=== PATIENT | male | born 2000 | race Caucasian/White ===

== ENCOUNTER 2021-05-24 23:33 | Day surgery (SDC) | payer OTHER ==
[~2021-05-24] VITALS: Ht 170.2 cm; Wt 76.6 kg
[2021-05-25] MEDS ORDERED: ACETAMINOPHEN 325 MG TAB PO ONE (01:05)
[2021-05-25] MEDS ORDERED: NS 1,000 ML IV ONE (01:05)
[2021-05-25 02:30] LABS: BASO % 0.3 % (0.0-1.0); EOS # 0.1 10^3/uL (0.0-0.5); EOS % 0.8 % (0.0-3.0); HEMATOCRIT 42.1 % (42.0-52.0); HEMOGLOBIN 14.1 g/dl (13.5-17.5); LYMPH # 2.4 10^3/uL (1.5-5.0); LYMPH % 15.3 % (24.0-44.0); MEAN CORPUSCULAR HEMOGLOBIN 28.1 pg (27.0-33.0); MEAN CORPUSCULAR HGB CONC 33.5 g/dl (32.0-36.5); MONO # 1.6 10^3/uL (0.0-0.8); MONO % 10.3 % (2.0-8.0); NEUTROPHILS # 11.6 10^3/uL (1.5-8.5); NEUTROPHILS % 72.9 % (36.0-66.0); PLATELET COUNT, AUTOMATED 198 10^3/uL (150-450); RED BLOOD COUNT 5.01 10^6/uL (4.30-6.10); WHITE BLOOD COUNT 15.9 10^3/uL (4.0-10.0)
[2021-05-25 02:59] LABS: ALBUMIN 4.1 GM/DL (3.2-5.2); ALT/SGPT 56 U/L (12-78); BILIRUBIN,DIRECT 0.1 MG/DL (0.0-0.2); BILIRUBIN,TOTAL 0.3 MG/DL (0.2-1.0); BLOOD UREA NITROGEN 17 MG/DL (7-18); CALCIUM LEVEL 9.4 MG/DL (8.5-10.1); CARBON DIOXIDE LEVEL 26 MEQ/L (21-32); CHLORIDE LEVEL 107 MEQ/L (98-107); CREATININE FOR GFR 1.02 MG/DL (0.70-1.30); GLUCOSE, FASTING 95 MG/DL (70-100); LIPASE 61 U/L (73-393); SODIUM LEVEL 141 MEQ/L (136-145)
[2021-05-25] MEDS ORDERED: ISOVUE-370 76% 100ML VIAL As Ordered ONE (03:14)
[2021-05-25 05:11] LABS: RSV AMPLIFICATION NEGATIVE (NEGATIVE)
[2021-05-25] MEDS ORDERED: PIPERACILLIN/TAZOBACTAM SOD 3.375 GM in D5W MINI-BAG PLUS 50 ML IV ONE (05:35)
--- NOTE | 2021-05-25 05:47 | REPVR ---
PROCEDURE INFORMATION: Exam: CT Abdomen And Pelvis With Contrast Exam date and time: 05/25/2021 3:25 AM Age: 20 years old Clinical indication: Other: Rlq pain TECHNIQUE: Imaging protocol: Computed tomography of the abdomen and pelvis with contrast. Radiation optimization: All CT scans at this facility use at least one of these dose optimization techniques: automated exposure control; mA and/or kV adjustment per patient size (includes targeted exams where dose is matched to clinical indication); or iterative reconstruction. Contrast material: ISOVUE 370; Contrast volume: 100 ml; Contrast route: INTRAVENOUS (IV); COMPARISON: No relevant prior studies available. FINDINGS: Lungs: The visualized portions of the lung bases are normal. Liver: The liver appears normal. Gallbladder and bile ducts: The gallbladder is normal with no stones or biliary ductal dilation. Pancreas: The pancreas is normal with no ductal dilation. Spleen: The spleen is normal. Adrenal glands: The adrenal glands are normal. Kidneys and ureters: The nephrograms appear symmetric. There is a punctate nonobstructing stone in the right kidney upper pole. There is no hydronephrosis. The nondilated distal ureters are difficult to trace, but no stones are seen along their expected course. Stomach and bowel: There is mild thickening of the terminal ileum. There is no dilation of the small bowel. There is amorphous soft tissue in the region of the cecal tip, which probably represents thickening of the wall of the cecum itself but a phlegmonous extraluminal collection is possible. No dilation or thickening of the colon are seen elsewhere. Appendix: The appendix is enlarged diffusely measuring 10 mm in diameter toward its tip. The wall of the appendix is diffusely thickened and mildly hyperenhancing.The base of the appendix is within the amorphous tissue at the cecal tip. There is prominent periappendiceal stranding. Intraperitoneal space: There is a small amount of free fluid in the right lower quadrant and in the midline of the pelvis. There is no free intraperitoneal air. Vasculature: No aortic aneurysm. Lymph nodes: There are enlarged mesenteric lymph nodes in the right lower quadrant. Urinary bladder: The bladder is mostly collapsed. No bladder stones are identified. Reproductive: The prostate gland appears normal. Bones/joints: No suspicious osseous lesions. No acute fractures. Soft tissues: The soft tissues appear unremarkable. IMPRESSION: Acute appendicitis with an enlarged, thickened, hyperenhancing appendix. Amorphous soft tissue at the base of the appendix and cecal tip probably represents thickening of the wall of the cecum, but a phlegmonous collection is difficult to exclude. Associated mild thickening of the adjacent terminal ileum, stranding in the right lower quadrant, a small amount of free fluid in the right lower quadrant and the pelvis, and enlarged mesenteric lymph nodes in the right lower quadrant. COMMENTS: THIS REPORT CONTAINS FINDINGS THAT MAY BE CRITICAL TO PATIENT CARE. The findings were verbally communicated via telephone conference with Dr. Reddy at 5:45 AM EST on 05/25/2021. The findings were acknowledged and understood. Electronically signed by: Chanda Georges On 05/25/2021 05:46:52 AM
[2021-05-25] MEDS ORDERED: ONDANSETRON 4MG/2ML VIAL As Ordered ONE ×2 (05:58→15:30)
[2021-05-25] MEDS ORDERED: NS 1,000 ML IV SCH (06:00)
[2021-05-25] MEDS ORDERED: ONDANSETRON 4MG/2ML VIAL IV ONE (06:00)
[2021-05-25] MEDS ORDERED: MORPHINE 2 MG/ML 1ML VIAL (J2270) IV ONE (06:05)
[2021-05-25] MEDS ORDERED: D31000TA2 PO (06:33)
[2021-05-25] MEDS ORDERED: MIRA1POW3 PO (06:33)
--- OUTSIDE RECORDS SUMMARY | 2021-05-25 07:52 | CCD ---
Author Author [facility] Address Unknown Phone Unavailable Support Name Relationship Address Phone [facility] Next Of Kin [address] [place] [address] Unavailable VALENCIA WANG Next Of Kin [address] [phone] Re-disclosure Warning The records that you are about to access may contain information from federally-assisted alcohol or drug abuse programs. If such information is present, then the following federally mandated warning applies: This information has been disclosed to you from records protected by federal confidentiality rules (42 CFR part 2). The federal rules prohibit you from making any further disclosure of this information unless further disclosure is expressly permitted by the written consent of the person to whom it pertains or as otherwise permitted by 42 CFR part 2. A general authorization for the release of medical or other information is NOT sufficient for this purpose. The Federal rules restrict any use of the information to criminally investigate or prosecute any alcohol or drug abuse patient.The records that you are about to access may contain highly sensitive health information, the redisclosure of which is protected by Article 27-F of the [facility] Public Health law. If you continue you may have access to information: Regarding HIV / AIDS; Provided by facilities licensed or operated by the [facility] Office of Mental Health; or Provided by the [facility] Office for People With Developmental Disabilities. If such information is present, then the following [facility] mandated warning applies: This information has been disclosed to you from confidential records which are protected by state law. State law prohibits you from making any further disclosure of this information without the specific written consent of the person to whom it pertains, or as otherwise permitted by law. Any unauthorized further disclosure in violation of state law may result in a fine or retirement sentence or both. A general authorization for the release of medical or other information is NOT sufficient authorization for further disc losure. Immunizations Vaccine Date Status Description Data Source(s) COVID-19 VACCINE Moderna 11/10/2020 12:00:00 AM EDT completed [facility] Vaccine Series Complete: YESThis Data wa s Submitted to [facility] Via [employer]. COVID-19 VACCINE Moderna 10/12/2020 12:00:00 AM EDT completed [facility] Vaccine Series Complete: NOThis Data was Submitted to [facility] [employer] [facility]. Medications No Information Insurance Providers Payer name Policy type / Coverage type Policy ID Covered democrat ID Covered democrat's relationship to khan Policy Khan Plan Information [facility] [employer] [id number] Problems, Conditions, and Diagnoses No Information Surgeries/Procedures No Information Results ID Date Data Source [id number] 02/02/2021 09:28:00 AM EDT [facility] Name Value Range Interpretation Code Description Data Raquel rce(s) Supporting Document(s) SARS coronavirus 2 RNA Not Detected [facility] [place] This lab was ordered by [facility] and reported by [facility]. Procedure Social History No Information
[2021-05-25] MEDS ORDERED: DICY20TA11 PO (08:00)
[2021-05-25] MEDS ORDERED: HOME MED LIST COMPLETE! XX SCH (08:00)
[2021-05-25] MEDS ORDERED: MORPHINE 2 MG/ML 1ML VIAL (J2270) IV PRN ×3 (13:05→18:00)
[2021-05-25] MEDS ORDERED: LIDOCAINE 2% 100MG/5ML SDV (FOR ANES.) As Ordered ONE (15:29)
[2021-05-25] MEDS ORDERED: MIDAZOLAM INJ 2MG/2ML VIAL (J2250 PER 1MG) As Ordered ONE (15:29)
[2021-05-25] MEDS ORDERED: fentaNYL 100 MCG/2 ML INJECTION (J3010) As Ordered ONE ×2 (15:29→17:10)
[2021-05-25] MEDS ORDERED: propofoL 200 MG/20 ML VIAL As Ordered ONE (15:30)
[2021-05-25] MEDS ORDERED: ROCURONIUM BROMIDE 50 MG/5 ML VIAL As Ordered ONE (15:30)
[2021-05-25] MEDS ORDERED: dexameTHASONE 4 MG/ML 1ML VIAL (J1100 PER 1MG) As Ordered ONE (15:30)
[2021-05-25] MEDS ORDERED: BUPIVACAINE/EPIN 0.25% 30 ML VIAL As Ordered ONE (16:37)
[2021-05-25] MEDS ORDERED: ZOSYN 3.375GM VIAL (J2543) As Ordered ONE (16:53)
[2021-05-25] MEDS ORDERED: ACETAMINOPHEN 1000MG 100ML IV BTL (OFIRMEV) (J0131 PER 10MG) As Ordered ONE (17:00)
[2021-05-25] MEDS ORDERED: SUGAMMADEX SODIUM 500 MG/5 ML VIAL (BRIDION) As Ordered ONE (17:10)
[2021-05-25] MEDS ORDERED: KETOROLAC 60MG 2ML VIAL As Ordered ONE (17:10)
[2021-05-25] MEDS ORDERED: NORCO, ANEXSIA 5/325MG TABLET (HYDROcodone/ACETAMINOPHEN) PO PRN (18:00)
[2021-05-25] MEDS ORDERED: LR 1,000 ML IV SCH ×2 (18:00→18:30)
[2021-05-25] MEDS ORDERED: ONDANSETRON 4MG/2ML VIAL IV PRN (18:30)
[2021-05-25] MEDS ORDERED: fentaNYL 100 MCG/2 ML INJECTION (J3010) IV PRN (18:30)
[2021-05-25] MEDS ORDERED: oxyCODONE 5MG TAB PO PRN (18:30)
[2021-05-25 19:00] VITALS: BP 112/59
[2021-05-25 19:30] VITALS: BP 121/57
[2021-05-25] MEDS: PIPERACILLIN/TAZOBACTAM SOD 3.375 GM in D5W MINI-BAG PLUS 50 ML IV SCH (19:43)
[2021-05-25 20:00] VITALS: BP 115/61
[2021-05-25] MEDS: NORCO, ANEXSIA 5/325MG TABLET (HYDROcodone/ACETAMINOPHEN) PO PRN (20:34)
[2021-05-25 21:00] VITALS: BP 121/66
[2021-05-25 22:00] VITALS: BP 121/63
[2021-05-25 23:00] VITALS: BP 124/64
[2021-05-26] MEDS: KETOROLAC 30 MG/ML 1ML VIAL IV SCH ×4 (00:41→18:55)
[2021-05-26] MEDS: PIPERACILLIN/TAZOBACTAM SOD 3.375 GM in D5W MINI-BAG PLUS 50 ML IV SCH ×4 (00:42→18:55)
[2021-05-26 02:00] VITALS: BP 123/70
[2021-05-26] MEDS: NORCO, ANEXSIA 5/325MG TABLET (HYDROcodone/ACETAMINOPHEN) PO PRN ×2 (05:14→21:20)
[2021-05-26 06:00] VITALS: BP 122/69
[2021-05-26] MEDS: PANTOPRAZOLE 40MG VIAL (C9113 PER 1) IV SCH (08:30)
--- NOTE | 2021-05-26 09:47 | IPNPDOC ---
Text Note Date of Service The patient was seen on 05/26/21. NOTE SUBJECTIVE: Patient is a 20-year-old male presenting with appendicitis status post laparoscopic appendectomy day 1. Patient was seen at bedside in no acute distress. States that he "feels like crap" but the abdominal pain is improved from yesterday. REVIEW OF SYSTEMS: CONSTITUTIONAL: denies fever, chills HEENT: denies headaches RESPIRATORY: denies cough, wheezing, shortness of breath CARDIOVASCULAR: denies chest pain, palpations GASTROINTESTINAL: has some abdominal pain GENITOURINARY: dysuria (better than yesterday) OBJECTIVE PHYSICAL EXAMINATION: VITAL SIGNS: Please see below. GENERAL: in no acute distress, HEENT: PERRLA, EOMI, mucous membranes moist CARDIOVASCULAR: regular rate and rhythm; S1 S2; no murmur, rubs or gallops noted RESPIRATORY: clear to auscultation bilaterally, no wheezes, rhonchi, rales noted ABDOMINAL: normal active bowel sounds; soft, nondistended; mild tenderness to palpation; incision site dressings intact and in place EXTREMITIES: no pitting edema bilaterally LABORATORY DATA, IMAGING STUDIES, MICROBIOLOGY: Please see below. ASSESSMENT AND PLAN: This is a 20-year-old male presenting with appendicitis status post laparoscopic appendectomy day 1. - continue abx - continue pain control as needed - advance diet as tolerated - may consider discharge to home tomorrow GME ATTESTATION My faculty preceptor for this patient encounter was physically present during the encounter and was fully available. All aspects of the patient interview, examination, medical decision making process, and medical care plan development were reviewed and approved by the faculty preceptor. The faculty preceptor is aware and concurs with the plan as stated in the body of this note and will attest to such by his/her cosignature. VS,Fishbone, I+O VS, Fishbone, I+O Vital Signs Date Time Temp Pulse Resp B/P (MAP) Pulse Ox O2 Delivery O2 Flow Rate FiO2 05/26/21 06:00 98.7 77 18 122/69 (86) 95 Room Air 05/26/21 05:44 1.0 l I&O- Last 24 Hours up to 6 AM 05/26/21 06:00 Intake Total 3135 ml Output Total 2250 ml Balance 885 ml Megan Velázquez DO May 26, 2021 09:47
[2021-05-26 10:00] VITALS: BP 129/63
[2021-05-26] MEDS ORDERED: NORCO, ANEXSIA 5/325MG TABLET (HYDROcodone/ACETAMINOPHEN) PO PRN (11:50)
--- NOTE | 2021-05-26 12:43 | RO ---
OPERATIVE NOTE DATE OF OPERATION: 05/25/2021 PREOPERATIVE DIAGNOSIS: Acute appendicitis. POSTOPERATIVE DIAGNOSIS: Acute appendicitis. PROCEDURE: Laparoscopic appendectomy. SURGEON: Yusuf Bryant Jr., MD DIRECTOR OF CARDIOPULMONARY SERVICES: ANESTHESIA: General endotracheal anesthesia ESTIMATED BLOOD LOSS: Minimal. FLUIDS: Crystalloid. BRIEF PROCEDURE SUMMARY: The patient was brought to the operating room and was given general anesthesia. After adequate anesthesia and preoperative antibiotics were given, the patient was prepped and draped in the usual sterile fashion. Next, a supraumbilical incision was made with a skin knife. Blunt dissection was carried down to fascia. The fascia was entered with Veress needle and insufflated to 15 mm of pressure and a dilating 12 mm trocar was placed. Next, a suprapubic and left lower quadrant 5 mm trocars were placed and the patient was placed in the Trendelenburg, left side down position. The tip of the appendix was well visualized and was edematous and inflamed but more importantly, it was the base of the appendix that was quite thickened and a palpable mass/stool ball was appreciated at the appendiceal orifice and there was some necrosis near the base of the appendix, however without perforation. This was able to be visualized after I used the harmonic scalpel to mobilize the terminal ileum and the cecum on this side as well as transect the mesoappendix with the harmonic scalpel all the way down to the cecal wall. However, this area was quite inflamed after having a prolonged inflammatory process present (almost 36 to 48 hours). In any case, I was able to use an atraumatic grasper and place it across this hard stool and was able to crush this out of the way but in doing so, there was still very thickened colon wall in this area and I felt that the base of the appendix was quite attenuated and thus I transected the tip of the cecum with an [place] 60 stapler and was able to get across the majority of the cecal tip. There was a little left over that a 45 stapler was used to remove. This was placed in an EndoCatch bag and brought out through the umbilicus. The right lower quadrant was copiously irrigated through until clear and all trocars removed under direct visualization. The fascia was closed with 0 Vicryl in the fascial layer and all incisions were closed with 4-0 Vicryl. Steri-Strips and a dry sterile dressing was applied. The patient was awakened, extubated, brought to the recovery room awake, alert, hemodynamically stable. Sponge and needle counts were correct x2.
[2021-05-26 14:00] VITALS: BP 120/67
[2021-05-26 20:02] VITALS: BP 118/62
[2021-05-27] MEDS: KETOROLAC 30 MG/ML 1ML VIAL IV SCH ×2 (00:45→06:33)
[2021-05-27] MEDS: PIPERACILLIN/TAZOBACTAM SOD 3.375 GM in D5W MINI-BAG PLUS 50 ML IV SCH ×2 (00:45→06:33)
[2021-05-27 02:00] VITALS: BP 116/56
[2021-05-27 06:00] VITALS: BP 110/57
[2021-05-27] MEDS: PANTOPRAZOLE 40MG VIAL (C9113 PER 1) IV SCH (08:06)
[2021-05-27] MEDS: NORCO, ANEXSIA 5/325MG TABLET (HYDROcodone/ACETAMINOPHEN) PO PRN (08:07)
[2021-05-27] MEDS ORDERED: HYDR-3715 PO (08:23)
== END 2021-05-27 10:44 | disposition home or self-care (01) ==
LOC: M ED 23:33 → EDBD 23:33 → M SDC 05-25 07:48 → ENRESERV 05-25 18:19 → M MSPAV 05-25 18:52 → M SDC 05-27 10:44
PROVIDERS: ATTEND Surgery
DX: K35.890 Other acute appendicitis without perforation or gangrene (principal)
CPT/HCPCS: 44970; 74177; 80048; 80076; 81001; 83605; 83690; 85025; 87040; 87631; 88304; 96365; 96366; 96375; 96376; 99285; C9113; J0131; J1100; J1885; J2250; J2270; J2405; J2543; J3010; Q9967

== ENCOUNTER 2021-06-08 02:35 | Inpatient (IN) | payer OTHER ==
[~2021-06-08] VITALS: Ht 170.2 cm; Wt 74.0 kg
[~2021-06-08 02:35] MED LIST: D31000TA2 PO; DICY20TA20 PO; HYDR-3715 PO; MIRA1POW3 PO
[2021-06-08] MEDS ORDERED: QC A650T3 PO (02:44)
[2021-06-08] MEDS ORDERED: cefTRIAXone SOD 2 GM in D5W MINI-BAG PLUS 50 ML IV ONE (03:05)
[2021-06-08] MEDS ORDERED: HYDROMORPHONE HCL 0.5 MG/ 0.5 ML SYRINGE (J1170 PER 1) IV PRN (03:05)
[2021-06-08] MEDS ORDERED: NS 2,260 ML in IV 1 EA IV ONE (03:05)
[2021-06-08] MEDS ORDERED: ISOVUE-370 76% 100ML VIAL As Ordered ONE (03:11)
[2021-06-08 03:24] LABS: BASO % 0.3 % (0.0-1.0); EOS % 0.3 % (0.0-3.0); HEMATOCRIT 39.4 % (42.0-52.0); HEMOGLOBIN 12.8 g/dl (13.5-17.5); LYMPH # 1.9 10^3/uL (1.5-5.0); LYMPH % 14.6 % (24.0-44.0); MEAN CORPUSCULAR HEMOGLOBIN 27.6 pg (27.0-33.0); MEAN CORPUSCULAR HGB CONC 32.5 g/dl (32.0-36.5); MEAN CORPUSCULAR VOLUME 85.1 fl (80.0-96.0); MONO # 1.4 10^3/uL (0.0-0.8); MONO % 10.7 % (2.0-8.0); NEUTROPHILS # 9.6 10^3/uL (1.5-8.5); NEUTROPHILS % 73.4 % (36.0-66.0); PLATELET COUNT, AUTOMATED 311 10^3/uL (150-450); RED BLOOD COUNT 4.63 10^6/uL (4.30-6.10); WHITE BLOOD COUNT 13.1 10^3/uL (4.0-10.0)
[2021-06-08] MEDS ORDERED: PIPERACILLIN/TAZOBACTAM SOD 4.5 GM in D5W MINI-BAG PLUS 50 ML IV ONE (03:40)
[2021-06-08] MEDS ORDERED: ACETAMINOPHEN TAB 650MG DOSE (2X325MG) PO ONE (03:40)
[2021-06-08] MEDS ORDERED: ONDANSETRON 4MG/2ML VIAL IV ONE (03:55)
[2021-06-08 04:03] LABS: ALBUMIN 3.4 GM/DL (3.2-5.2); ALT/SGPT 88 U/L (12-78); BILIRUBIN,DIRECT 0.2 MG/DL (0.0-0.2); BILIRUBIN,TOTAL 0.6 MG/DL (0.2-1.0); BLOOD UREA NITROGEN 11 MG/DL (7-18); CARBON DIOXIDE LEVEL 29 MEQ/L (21-32); CHLORIDE LEVEL 105 MEQ/L (98-107); CREATININE FOR GFR 0.96 MG/DL (0.70-1.30); GLUCOSE, FASTING 94 MG/DL (70-100); LIPASE 45 U/L (73-393); POTASSIUM SERUM 3.8 MEQ/L (3.5-5.1); SODIUM LEVEL 141 MEQ/L (136-145); TOTAL PROTEIN 6.9 GM/DL (6.4-8.2)
[2021-06-08] MEDS ORDERED: ACET-907 PO (04:11)
[2021-06-08] MEDS ORDERED: IBUP-1764 PO (04:11)
[2021-06-08] MEDS ORDERED: D31000TA2 PO (04:11)
[2021-06-08] MEDS ORDERED: DICY20TA3 PO (04:11)
[2021-06-08] MEDS ORDERED: MIRA1POW3 PO (04:11)
[2021-06-08] MEDS ORDERED: HOME MED LIST COMPLETE! XX SCH (04:15)
[2021-06-08 04:17] LABS: RSV AMPLIFICATION NEGATIVE (NEGATIVE)
[2021-06-08] MEDS ORDERED: MOM 30ML SUSPENSION UDC PO PRN (04:50)
[2021-06-08] MEDS: HEPARIN SOD (PORCINE) 5000UNITS/ML 1ML VIAL/SYRINGE SC SCH ×3 (05:56→21:37)
[2021-06-08 06:00] VITALS: BP 119/53
[2021-06-08] MEDS ORDERED: MORPHINE 2 MG/ML 1ML VIAL (J2270) IV ONE ×2 (06:30→12:00)
[2021-06-08 07:53] LABS: HEMATOCRIT 35.7 % (42.0-52.0); HEMOGLOBIN 11.8 g/dl (13.5-17.5); MEAN CORPUSCULAR HGB CONC 33.1 g/dl (32.0-36.5); MEAN CORPUSCULAR VOLUME 84.8 fl (80.0-96.0); PLATELET COUNT, AUTOMATED 246 10^3/uL (150-450); RED BLOOD COUNT 4.21 10^6/uL (4.30-6.10); WHITE BLOOD COUNT 10.9 10^3/uL (4.0-10.0)
[2021-06-08 08:17] LABS: ALBUMIN 3.1 GM/DL (3.2-5.2); ALT/SGPT 74 U/L (12-78); BILIRUBIN,TOTAL 1.2 MG/DL (0.2-1.0); BLOOD UREA NITROGEN 8 MG/DL (7-18); CALCIUM LEVEL 8.8 MG/DL (8.5-10.1); CARBON DIOXIDE LEVEL 26 MEQ/L (21-32); CHLORIDE LEVEL 107 MEQ/L (98-107); CREATININE FOR GFR 0.82 MG/DL (0.70-1.30); GLUCOSE, FASTING 83 MG/DL (70-100); POTASSIUM SERUM 3.5 MEQ/L (3.5-5.1); SODIUM LEVEL 139 MEQ/L (136-145); TOTAL PROTEIN 6.9 GM/DL (6.4-8.2)
[2021-06-08] MEDS: NS 1,000 ML IV SCH (09:41)
[2021-06-08] MEDS: PIPERACILLIN/TAZOBACTAM SOD 4.5 GM in D5W MINI-BAG PLUS 50 ML IV SCH ×3 (09:41→21:34)
[2021-06-08] MEDS ORDERED: LIDOCAINE 1% MDV 20ML VIAL As Ordered ONE (11:21)
[2021-06-08 14:00] VITALS: BP 116/56
[2021-06-08] MEDS ORDERED: MORPHINE 2 MG/ML 1ML VIAL (J2270) IV PRN (14:05)
[2021-06-08] MEDS: BACLOFEN 10 MG TAB PO SCH (14:35)
[2021-06-08 19:53] VITALS: BP 121/68
[2021-06-08] MEDS: ACETAMINOPHEN TAB 650MG DOSE (2X325MG) PO PRN (19:57)
[2021-06-08] MEDS ORDERED: ONDANSETRON 4MG/2ML VIAL IV PRN (21:55)
[2021-06-09] MEDS: NS 1,000 ML IV SCH ×3 (00:11→19:39)
[2021-06-09] MEDS ORDERED: KETOROLAC 30 MG/ML 1ML VIAL IV ONE (01:00)
[2021-06-09] MEDS ORDERED: ONDANSETRON 4MG/2ML VIAL IV PRN (01:25)
[2021-06-09] MEDS ORDERED: MORPHINE 2 MG/ML 1ML VIAL (J2270) IV PRN (02:05)
[2021-06-09] MEDS: PIPERACILLIN/TAZOBACTAM SOD 4.5 GM in D5W MINI-BAG PLUS 50 ML IV SCH ×4 (04:16→21:19)
[2021-06-09] MEDS: HEPARIN SOD (PORCINE) 5000UNITS/ML 1ML VIAL/SYRINGE SC SCH ×3 (05:25→21:19)
[2021-06-09 05:59] LABS: HEMATOCRIT 35.2 % (42.0-52.0); HEMOGLOBIN 11.5 g/dl (13.5-17.5); MEAN CORPUSCULAR HGB CONC 32.7 g/dl (32.0-36.5); MEAN CORPUSCULAR VOLUME 85.6 fl (80.0-96.0); PLATELET COUNT, AUTOMATED 223 10^3/uL (150-450); RED BLOOD COUNT 4.11 10^6/uL (4.30-6.10); WHITE BLOOD COUNT 11.2 10^3/uL (4.0-10.0)
[2021-06-09 06:00] VITALS: BP 105/61
[2021-06-09 06:23] LABS: BLOOD UREA NITROGEN 12 MG/DL (7-18); CALCIUM LEVEL 9.2 MG/DL (8.5-10.1); CARBON DIOXIDE LEVEL 27 MEQ/L (21-32); CHLORIDE LEVEL 105 MEQ/L (98-107); CREATININE FOR GFR 0.87 MG/DL (0.70-1.30); GLUCOSE, FASTING 117 MG/DL (70-100); POTASSIUM SERUM 3.7 MEQ/L (3.5-5.1); SODIUM LEVEL 138 MEQ/L (136-145)
[2021-06-09] MEDS ORDERED: ISOVUE-370 76% 100ML VIAL As Ordered ONE (07:44)
[2021-06-09] MEDS: BACLOFEN 10 MG TAB PO SCH (09:22)
[2021-06-09] MEDS: ACETAMINOPHEN TAB 650MG DOSE (2X325MG) PO PRN ×2 (09:22→17:42)
[2021-06-09] MEDS: DOCUSATE SODIUM 100MG CAPSULE PO SCH ×2 (12:06→21:18)
[2021-06-09 14:00] VITALS: BP 108/61
[2021-06-09] MEDS ORDERED: SENNA 8.6 MG TAB (SENOKOT) PO SCH (21:00)
[2021-06-09] MEDS: PERCOCET 5MG/325MG TAB PO PRN (21:19)
[2021-06-09 22:00] VITALS: BP 109/61
[2021-06-10] MEDS: PERCOCET 5MG/325MG TAB PO PRN (00:58)
[2021-06-10 01:45] VITALS: O2SAT 94
[2021-06-10] MEDS: PIPERACILLIN/TAZOBACTAM SOD 4.5 GM in D5W MINI-BAG PLUS 50 ML IV SCH ×2 (03:35→10:00)
[2021-06-10] MEDS: ACETAMINOPHEN TAB 650MG DOSE (2X325MG) PO PRN ×2 (03:36→08:47)
[2021-06-10] MEDS: HEPARIN SOD (PORCINE) 5000UNITS/ML 1ML VIAL/SYRINGE SC SCH (05:13)
[2021-06-10 06:00] VITALS: BP 122/67
[2021-06-10 07:22] LABS: HEMATOCRIT 33.5 % (42.0-52.0); HEMOGLOBIN 10.9 g/dl (13.5-17.5); MEAN CORPUSCULAR HEMOGLOBIN 27.9 pg (27.0-33.0); MEAN CORPUSCULAR HGB CONC 32.5 g/dl (32.0-36.5); MEAN CORPUSCULAR VOLUME 85.7 fl (80.0-96.0); PLATELET COUNT, AUTOMATED 216 10^3/uL (150-450); RED BLOOD COUNT 3.91 10^6/uL (4.30-6.10); WHITE BLOOD COUNT 8.3 10^3/uL (4.0-10.0)
[2021-06-10] MEDS ORDERED: PERCOCET PO ×2 (07:38→11:22)
[2021-06-10] MEDS ORDERED: SENN18TA PO ×2 (07:38→11:22)
[2021-06-10] MEDS ORDERED: METR-265 PO ×2 (07:38→11:22)
[2021-06-10] MEDS ORDERED: COLA100C5 PO ×2 (07:38→11:22)
[2021-06-10] MEDS ORDERED: CIPR250T3 PO ×2 (07:38→11:22)
[2021-06-10] MEDS ORDERED: PROBCAP14 PO ×2 (07:38→11:22)
[2021-06-10 07:43] LABS: BLOOD UREA NITROGEN 6 MG/DL (7-18); CALCIUM LEVEL 8.7 MG/DL (8.5-10.1); CARBON DIOXIDE LEVEL 26 MEQ/L (21-32); CHLORIDE LEVEL 108 MEQ/L (98-107); CREATININE FOR GFR 0.82 MG/DL (0.70-1.30); GLUCOSE, FASTING 86 MG/DL (70-100); POTASSIUM SERUM 3.6 MEQ/L (3.5-5.1); SODIUM LEVEL 142 MEQ/L (136-145)
[2021-06-10] MEDS ORDERED: SIME80CH5 PO ×2 (08:24→11:22)
[2021-06-10] MEDS: DOCUSATE SODIUM 100MG CAPSULE PO SCH (08:46)
[2021-06-10] MEDS: BACLOFEN 10 MG TAB PO SCH (08:47)
== END 2021-06-10 12:05 | disposition home or self-care (01) | DRG 872 ==
LOC: M ED 02:35 → M ED INP 04:50 → M MS5PR 05:42
PROVIDERS: ADMIT Family Medicine; ATTEND Internal Medicine
DX: A41.9 Sepsis, unspecified organism (principal); K76.89 Other specified diseases of liver; Z90.49 Acquired absence of other specified parts of digestive tract; Z20.822 Contact with and (suspected) exposure to COVID-19; Z79.899 Other long term (current) drug therapy

== ENCOUNTER 2021-12-03 16:27 | Emergency (ER) | payer OTHER ==
[~2021-12-03] VITALS: Ht 170.2 cm; Wt 79.5 kg
[~2021-12-03 16:27] MED LIST changes: +ACET-907 PO; +CIPR250T3 PO; +COLA100C5 PO; -D31000TA2 PO; +DICY20TA3 PO; +IBUP-1764 PO; +METR-265 PO; +PERCOCET PO; +PROBCAP14 PO; +QC A650T3 PO; +SENN18TA PO; +SIME80CH5 PO; +VITA100093 PO
[2021-12-03] MEDS ORDERED: ONDANSETRON 4MG/2ML VIAL IV ONE (16:40)
[2021-12-03] MEDS ORDERED: KETOROLAC 30 MG/ML 1ML VIAL IV ONE (16:40)
[2021-12-03] MEDS ORDERED: NS 1,000 ML IV ONE (16:40)
[2021-12-03 17:11] LABS: BASO % 0.4 % (0.0-1.0); EOS # 0.2 10^3/uL (0.0-0.5); EOS % 1.7 % (0.0-3.0); HEMATOCRIT 44.5 % (42.0-52.0); HEMOGLOBIN 14.7 g/dl (13.5-17.5); LYMPH # 4.1 10^3/uL (1.5-5.0); LYMPH % 45.4 % (24.0-44.0); MEAN CORPUSCULAR HEMOGLOBIN 28.1 pg (27.0-33.0); MEAN CORPUSCULAR VOLUME 85.1 fl (80.0-96.0); MONO # 1.1 10^3/uL (0.0-0.8); MONO % 12.8 % (2.0-8.0); NEUTROPHILS # 3.5 10^3/uL (1.5-8.5); NEUTROPHILS % 39.4 % (36.0-66.0); PLATELET COUNT, AUTOMATED 313 10^3/uL (150-450); RED BLOOD COUNT 5.23 10^6/uL (4.30-6.10); WHITE BLOOD COUNT 8.9 10^3/uL (4.0-10.0)
[2021-12-03] MEDS ORDERED: MORPHINE 4 MG/ML 1ML VIAL/SYRINGE IV ONE (17:45)
[2021-12-03] MEDS ORDERED: HYDR-3715 PO (19:05)
[2021-12-03] MEDS ORDERED: FLOM0.4C39 PO (19:05)
[2021-12-03] MEDS ORDERED: TAMSULOSIN 0.4 MG CAP PO ONE (19:10)
[2021-12-03 19:23] VITALS: BP 117/61
== END 2021-12-03 19:24 | disposition home or self-care (01) ==
LOC: M ED 16:27
DX: N13.2 Hydronephrosis with renal and ureteral calculous obstruction (principal); K76.89 Other specified diseases of liver; Z79.899 Other long term (current) drug therapy
CPT/HCPCS: 74176; 80047; 81001; 85025; 96361; 96374; 96375; 99284; J1885; J2270; J2405

== ENCOUNTER → 2022-04-27 | Outpatient (CLI) | payer OTHER ==
[~2022-04-27] MED LIST changes: +FLOM0.4C39 PO; +ISOVUE-300 61% 50ML VIAL ONE; +LIDOCAINE 1% MDV 20ML VIAL ONE; +TRIAMCINOLONE ACETONIDE SUSP 40 MG/ML VIAL (J3301) ONE
== END ==
LOC: M PLAIMG 12:43
PROVIDERS: ATTEND Physician Assistant Surgical
DX: S73.121A Ischiocapsular ligament sprain of right hip, initial encounter (principal); X58.XXXA Exposure to other specified factors, initial encounter; Y92.9 Unspecified place or not applicable
CPT/HCPCS: 20610; 76000; J3301; Q9967

== ENCOUNTER 2023-11-28 11:52 | Emergency (ER) | payer OTHER ==
[~2023-11-28] VITALS: Ht 172.7 cm; Wt 76.5 kg
[~2023-11-28 11:52] MED LIST changes: -ISOVUE-300 61% 50ML VIAL ONE; -LIDOCAINE 1% MDV 20ML VIAL ONE; -MIRA1POW3 PO; +MIRA33506 PO; +SENN-111 PO; -SENN18TA PO; -TRIAMCINOLONE ACETONIDE SUSP 40 MG/ML VIAL (J3301) ONE
[2023-11-28 15:52] LABS: BASO % 0.4 % (0.0-1.0); EOS # 0.2 10^3/uL (0.0-0.5); EOS % 2.1 % (0.0-3.0); HEMATOCRIT 44.7 % (42.0-52.0); HEMOGLOBIN 14.9 g/dl (13.5-17.5); LYMPH # 3.3 10^3/uL (1.5-5.0); LYMPH % 43.1 % (24.0-44.0); MEAN CORPUSCULAR HEMOGLOBIN 28.7 pg (27.0-33.0); MEAN CORPUSCULAR HGB CONC 33.3 g/dl (32.0-36.5); MONO # 0.8 10^3/uL (0.0-0.8); MONO % 10.2 % (2.0-8.0); NEUTROPHILS # 3.3 10^3/uL (1.5-8.5); NEUTROPHILS % 43.8 % (36.0-66.0); PLATELET COUNT, AUTOMATED 217 10^3/uL (150-450); WHITE BLOOD COUNT 7.6 10^3/uL (4.0-10.0)
[2023-11-28 16:05] LABS: LIPASE 27 U/L (12-53)
[2023-11-28 16:08] LABS: ALBUMIN 4.6 G/DL (3.2-5.2); ALKALINE PHOSPHATASE 47 U/L (46-116); ALT/SGPT 44 U/L (7.0-40); AST/SGOT 18 U/L (<34); BILIRUBIN,DIRECT 0.2 MG/DL (<0.4); BILIRUBIN,TOTAL 0.6 MG/DL (0.3-1.2); BLOOD UREA NITROGEN 13 MG/DL (9-23); CALCIUM LEVEL 9.4 MG/DL (8.5-10.1); CARBON DIOXIDE LEVEL 30 MMOL/L (20-31); CHLORIDE LEVEL 105 MMOL/L (98-107); CREATININE FOR GFR 0.85 MG/DL (0.70-1.30); GLOMERULAR FILTRATION RATE > 60.0 (>60); GLUCOSE, FASTING 87 MG/DL (60-100); POTASSIUM SERUM 4.3 MMOL/L (3.5-5.1); SODIUM LEVEL 139 MMOL/L (136-145); TOTAL PROTEIN 6.8 G/DL (5.7-8.2)
[2023-11-28 20:49] VITALS: BP 128/74; TEMP 98.3; O2SAT 97
[2023-11-28 21:03] LABS: FREE T4 0.94 NG/DL (0.89-1.76)
[2023-11-28 21:04] LABS: THYROID STIMULATING HORMONE 1.087 uIU/ML (0.55-4.78)
== END 2023-11-28 21:04 | disposition home or self-care (01) ==
LOC: M ED 11:52
DX: R53.83 Other fatigue (principal); R41.9 Unspecified symptoms and signs involving cognitive functions and awareness; F10.10 Alcohol abuse, uncomplicated; Z79.1 Long term (current) use of non-steroidal anti-inflammatories (NSAID); Z79.899 Other long term (current) drug therapy

== ENCOUNTER 2024-11-09 13:28 | Emergency (ER) | payer OTHER ==
[~2024-11-09] VITALS: Ht 172.7 cm; Wt 81.8 kg
[~2024-11-09 13:28] MED LIST changes: -FLOM0.4C39 PO; -SENN-111 PO; +SENN-165 PO; +TAMS-18 PO
[2024-11-09 14:19] LABS: BASO % 0.6 % (0.0-1.0); EOS # 0.1 10^3/uL (0.0-0.5); EOS % 1.9 % (0.0-3.0); HEMATOCRIT 41.8 % (42.0-52.0); HEMOGLOBIN 14.1 g/dl (13.5-17.5); LYMPH # 2.4 10^3/uL (1.5-5.0); LYMPH % 35.7 % (24.0-44.0); MEAN CORPUSCULAR HEMOGLOBIN 28.3 pg (27.0-33.0); MEAN CORPUSCULAR HGB CONC 33.7 g/dl (32.0-36.5); MEAN CORPUSCULAR VOLUME 83.8 fl (80.0-96.0); MONO # 0.6 10^3/uL (0.0-0.8); MONO % 9.3 % (2.0-8.0); NEUTROPHILS # 3.5 10^3/uL (1.5-8.5); NEUTROPHILS % 52.1 % (36.0-66.0); PLATELET COUNT, AUTOMATED 234 10^3/uL (150-450); RED BLOOD COUNT 4.99 10^6/uL (4.30-6.10); WHITE BLOOD COUNT 6.8 10^3/uL (4.0-10.0)
[2024-11-09 14:42] LABS: BLOOD UREA NITROGEN 11 MG/DL (9-23); CARBON DIOXIDE LEVEL 28 MMOL/L (20-31); CHLORIDE LEVEL 105 MMOL/L (98-107); CREATININE FOR GFR 0.81 MG/DL (0.70-1.30); GLOMERULAR FILTRATION RATE > 90.0 (>60); GLUCOSE, FASTING 92 MG/DL (60-100); POTASSIUM SERUM 4.1 MMOL/L (3.5-5.1); SODIUM LEVEL 142 MMOL/L (136-145)
[2024-11-09 21:43] VITALS: BP 123/66; TEMP 98.3; O2SAT 98
== END 2024-11-09 21:49 | disposition home or self-care (01) ==
LOC: M ED 13:28
DX: G31.84 Mild cognitive impairment of uncertain or unknown etiology (principal); Z79.1 Long term (current) use of non-steroidal anti-inflammatories (NSAID); Z79.899 Other long term (current) drug therapy

== ENCOUNTER 2025-03-31 18:20 | Emergency (ER) | payer OTHER ==
[~2025-03-31] VITALS: Ht 172.7 cm; Wt 77.8 kg
[2025-03-31] MEDS ORDERED: MELO15TA28 PO (18:29)
[2025-03-31] MEDS ORDERED: ketorolac IM (18:29)
[2025-03-31] MEDS: KETOROLAC 30 MG/ML 1 ML VIAL IV ONE (18:53)
[2025-03-31] MEDS: ONDANSETRON 4MG 2ML VIAL IV ONE (18:53)
[2025-03-31 19:28] LABS: BASO # 0.1 10^3/uL (0.0-0.2); BASO % 0.6 % (0.0-1.0); EOS # 0.2 10^3/uL (0.0-0.5); EOS % 1.8 % (0.0-3.0); LYMPH # 3.0 10^3/uL (1.5-5.0); LYMPH % 32.7 % (24.0-44.0); MONO # 0.7 10^3/uL (0.0-0.8); MONO % 7.4 % (2.0-8.0); NEUTROPHILS # 5.2 10^3/uL (1.5-8.5); NEUTROPHILS % 57.2 % (36.0-66.0); PLATELET COUNT, AUTOMATED 229 10^3/uL (150-450)
[2025-03-31 19:45] LABS: ALT/SGPT 49.0 U/L (7.0-40); AST/SGOT 26.0 U/L (<34); KETONE, URINE AUTO RFX NEGATIVE (NEGATIVE); LEUKOCYTE ESTERASE UR AUTO RFX NEGATIVE (NEGATIVE); MUCUS, URINE RFX SMALL (NEGATIVE); NITRITE, URINE AUTO RFX NEGATIVE (NEGATIVE); RBC, URINE AUTO RFX 93 /HPF (0-3); SQUAM EPITHELIAL CELL UR AURFX 0 /HPF (0-6); WBC, URINE AUTO RFX 1 /HPF (0-3)
[2025-03-31 20:02] VITALS: BP 115/67; TEMP 97.8; O2SAT 100
[2025-03-31] MEDS ORDERED: TAMS-18 PO (20:08)
[2025-03-31] MEDS ORDERED: IBUP600T42 PO (20:08)
[2025-03-31] MEDS ORDERED: ONDA-282 PO (20:08)
== END 2025-03-31 20:20 | disposition home or self-care (01) ==
LOC: M ED 18:20
DX: N20.1 Calculus of ureter (principal); Z79.1 Long term (current) use of non-steroidal anti-inflammatories (NSAID); Z79.899 Other long term (current) drug therapy
CPT/HCPCS: 74176; 80047; 80076; 81001; 83690; 85025; 96374; 99284; J1885; J2405

== ENCOUNTER 2025-04-01 04:30 | Emergency (ER) | payer OTHER ==
[~2025-04-01] VITALS: Ht 172.7 cm; Wt 77.3 kg
[~2025-04-01 04:30] MED LIST changes: +IBUP600T42 PO; +MELO15TA28 PO; +ONDA-282 PO; +ketorolac IM
[2025-04-01 04:31] VITALS: BP 127/66; TEMP 97.2
[2025-04-01 05:32] VITALS: O2SAT 98
[2025-04-01] MEDS: NORCO 5/325MG TABLET (HOME DOSE PACK) PO ONE (05:32)
== END 2025-04-01 05:30 | disposition home or self-care (01) ==
LOC: M ED 04:30
DX: N20.0 Calculus of kidney (principal); R10.9 Unspecified abdominal pain; Z79.1 Long term (current) use of non-steroidal anti-inflammatories (NSAID); Z79.899 Other long term (current) drug therapy

== ENCOUNTER 2025-04-25 04:55 | Emergency (ER) | payer OTHER ==
[~2025-04-25] VITALS: Ht 172.7 cm; Wt 78.1 kg
[2025-04-25 05:35] LABS: KETONE, URINE AUTO RFX NEGATIVE (NEGATIVE); LEUKOCYTE ESTERASE UR AUTO RFX NEGATIVE (NEGATIVE); MUCUS, URINE RFX SMALL (NEGATIVE); NITRITE, URINE AUTO RFX NEGATIVE (NEGATIVE); RBC, URINE AUTO RFX 3 /HPF (0-3); SQUAM EPITHELIAL CELL UR AURFX 0 /HPF (0-6); WBC, URINE AUTO RFX 0 /HPF (0-3)
[2025-04-25 05:49] LABS: BASO # 0.0 10^3/uL (0.0-0.2); BASO % 0.5 % (0.0-1.0); EOS # 0.2 10^3/uL (0.0-0.5); EOS % 2.4 % (0.0-3.0); LYMPH # 2.5 10^3/uL (1.5-5.0); LYMPH % 37.6 % (24.0-44.0); MONO # 0.8 10^3/uL (0.0-0.8); MONO % 11.6 % (2.0-8.0); NEUTROPHILS # 3.1 10^3/uL (1.5-8.5); NEUTROPHILS % 47.4 % (36.0-66.0); PLATELET COUNT, AUTOMATED 223 10^3/uL (150-450)
[2025-04-25] MEDS ORDERED: NS (Normal Saline) 0.9% 1,000 ML IV ONE (06:15)
[2025-04-25 06:22] LABS: ALT/SGPT 56 U/L (7.0-40); AST/SGOT 20 U/L (<34); CALCIUM LEVEL 8.5 MG/DL (8.5-10.1); CARBON DIOXIDE LEVEL 29 MMOL/L (20-31); CHLORIDE LEVEL 105 MMOL/L (98-107); CREATININE FOR GFR 0.85 MG/DL (0.70-1.30); GLOMERULAR FILTRATION RATE > 90.0 (>60); POTASSIUM SERUM 4.2 MMOL/L (3.5-5.1); SODIUM LEVEL 141 MMOL/L (136-145)
[2025-04-25 07:07] VITALS: BP 114/55; TEMP 97.3; O2SAT 98
== END 2025-04-25 07:21 | disposition home or self-care (01) ==
LOC: M ED 04:55
DX: N23 Unspecified renal colic (principal); Z79.899 Other long term (current) drug therapy

== ENCOUNTER 2025-05-26 09:59 | Emergency (ER) | payer OTHER ==
[~2025-05-26] VITALS: Ht 170.2 cm; Wt 78.0 kg
[2025-05-26 10:55] LABS: APPEARANCE, URINE CLEAR (CLEAR); BACTERIA, URINE AUTO NEGATIVE (NEGATIVE); BILIRUBIN, URINE AUTO NEGATIVE (NEGATIVE); BLOOD, URINE BLOOD NEGATIVE (NEGATIVE); GLUCOSE, URINE (UA) AUTO NEGATIVE (NEGATIVE); KETONE, URINE AUTO NEGATIVE (NEGATIVE); LEUKOCYTE ESTERASE, URINE AUTO NEGATIVE (NEGATIVE); MUCUS, URINE SMALL (NEGATIVE); NITRITE, URINE AUTO NEGATIVE (NEGATIVE); PROTEIN, URINE AUTO NEGATIVE (NEGATIVE); RBC, URINE AUTO 2 /HPF (0-3); SPECIFIC GRAVITY URINE AUTO 1.018 (1.002-1.035); SQUAMOUS EPITHELIAL CELL UR AU 0 /HPF (0-6); UROBILINOGEN, URINE AUTO 2.0 mg/dL (0.0-2.0); WBC, URINE AUTO 0 /HPF (0-3)
[2025-05-26 11:46] LABS: BASO # 0.1 10^3/uL (0.0-0.2); BASO % 0.8 % (0.0-1.0); EOS # 0.2 10^3/uL (0.0-0.5); EOS % 2.7 % (0.0-3.0); LYMPH # 2.3 10^3/uL (1.5-5.0); LYMPH % 36.4 % (24.0-44.0); MONO # 0.7 10^3/uL (0.0-0.8); MONO % 11.9 % (2.0-8.0); NEUTROPHILS # 3.0 10^3/uL (1.5-8.5); NEUTROPHILS % 47.9 % (36.0-66.0); PLATELET COUNT, AUTOMATED 226 10^3/uL (150-450)
[2025-05-26] MEDS: NS (Normal Saline) 0.9% 1,000 ML IV SCH (12:10)
[2025-05-26] MEDS: KETOROLAC 30 MG/ML 1 ML VIAL IV ONE (12:11)
[2025-05-26 12:20] LABS: ALT/SGPT 73 U/L (7.0-40); AST/SGOT 30 U/L (<34)
[2025-05-26 12:48] LABS: CALCIUM LEVEL 9.0 MG/DL (8.5-10.1); CARBON DIOXIDE LEVEL 28 MMOL/L (20-31); CHLORIDE LEVEL 108 MMOL/L (98-107); CREATININE FOR GFR 0.88 MG/DL (0.70-1.30); GLOMERULAR FILTRATION RATE > 90.0 (>60); POTASSIUM SERUM 4.4 MMOL/L (3.5-5.1); SODIUM LEVEL 146 MMOL/L (136-145)
[2025-05-26 14:24] VITALS: BP 132/59; TEMP 98.5; O2SAT 98
== END 2025-05-26 15:04 | disposition home or self-care (01) ==
LOC: M ED 09:59
DX: R10.A3 Flank pain, bilateral (principal); N20.0 Calculus of kidney; Z79.899 Other long term (current) drug therapy
CPT/HCPCS: 74176; 80047; 80048; 80076; 81001; 83690; 85025; 96374; 99284; J1885